=== PATIENT | female | born 1985 | race Asian ===

== ENCOUNTER 2018-11-07 04:33 | Emergency (ER) | payer MEDICAID ==
[~2018-11-07] VITALS: Ht 162.6 cm; Wt 50.5 kg
[2018-11-07 04:39] VITALS: Ht 162.6 cm; Wt 50.5 kg
[2018-11-07 05:56] LABS: BASOPHIL % 0.4 % (0-2); PLATELET COUNT 294 x10^3mcL (130-400); RED CELL DISTRIBUTION WIDTH 13.2 % (11.5-14.5)
[2018-11-07 10:19] VITALS: BP 98/58
== END 2018-11-07 10:19 | disposition home or self-care (01) ==
LOC: ED 04:33
PROVIDERS: Emergency Medicine
DX: O03.9 Complete or unspecified spontaneous abortion without complication (principal); Z88.0 Allergy status to penicillin; Z88.1 Allergy status to other antibiotic agents
CPT/HCPCS: 36415